=== PATIENT | female | born 1955 | race Caucasian/White ===

== ENCOUNTER 2023-07-16 07:33 | Emergency (ER) | payer MEDICARE, SELFPAY ==
--- NOTE | ~2023-07-16 | XR_ITS ---
EXAMINATION: XR ANKLE, RIGHT CLINICAL INFORMATION: Ankle pain COMPARISON: None available. TECHNIQUE: AP, lateral, and mortise views of the right ankle. FINDINGS: The mortise is preserved. There is no fracture, dislocation or destructive process. Small plantar spur is noted. Dystrophic calcification seen in the region of the plantar fascia. XR/XR ankle RT min 3V IMPRESSION: No acute findings. Probable plantar fasciopathy.
[2023-07-16 07:38] VITALS: BP 142/64; PULSE 79; RESP 16; TEMP 36.5; O2SAT 96; BMI 30.6
--- NOTE | 2023-07-16 08:23 | ED.LOWEXIN ---
HPI - Extremity Injury (Lower) General Chief Complaint: Extremity Injury, Lower Stated Complaint: r foot inj Time Seen by Provider: 07/16/23 08:18 Source: patient Mode of arrival: ambulatory Limitations: no limitations History of Present Illness ED Provider: Mayelin Coronado PA-C HPI Narrative: 67 yo female with PMH significant for but not limited to HTN, DM, and osteoarthritis of bilateral shoulders, presents to the ED for evaluation of right foot pain that began yesterday afternoon. Describes she was shopping, on her feet all day before the pain started. States she was wearing supportive sandals. She denies any precipitating injury. Pain exacerbated with ambulation and weight-bearing. Denies any attempts at pain relief with ice or OTC medication. Rates the pain as a 7/10 at rest and 10/10 with weight-bearing. Describes the pain as constant aching. Localizes the pain to her lateral malleolus region. She denies paresthesias. Describes she has experienced plantar fasciitis of her right foot in the past and did not feel like her current discomfort. MD complaint: other (Right ankle pain ) Onset (ago): day(s) Injury: Right: foot Type of Injury: unknown Severity: moderate Severity scale (1-10): 7 Exacerbating factors: weight bearing Associated symptoms: able to partially bear weight Other symptoms: none Related Data Allergies Allergy/AdvReac Type Severity Reaction Status Date / Time acetaminophen [From Percocet] Allergy Itching Verified 07/16/23 07:39 hydromorphone [From Dilaudid] Allergy Itching Verified 07/16/23 07:39 oxycodone [From Percocet] Allergy Itching Verified 07/16/23 07:39 Review of Systems Review of Systems: Yes all other systems are reviewed and are negative [facility] Social History Social History Advance Directives: No Physical Exam Vital Signs: Vital Signs: Last Vital Signs Temp 97.7 F 07/16/23 09:12 Pulse 79 07/16/23 09:12 Resp 16 07/16/23 09:12 BP 142/64 H 07/16/23 09:12 Pulse Ox 96 07/16/23 09:12 O2 Del Method Room Air 07/16/23 09:12 BMI result Body Mass Index 30.6 Appearance: Alert. Oriented X3. No acute distress. Head: normocephalic, atraumatic. Eyes: Pupils equal, round and reactive to light. ENT: Pharynx normal. Neck: Normal inspection. Neck supple. CVS: Normal heart rate and rhythm. Pulses normal. Respiratory: No respiratory distress. Abdomen: Soft and nontender. Skin: Skin warm and dry. Normal skin color. Normal skin turgor. No rashes. Extremities: No lower extremity edema. No joint swelling. No ecchymosis or erythema. Full ROM. Pain with dorsiflexion. Neurovascularly intact. No swelling of the right ankle with mild tenderness beneath the right lateral malleolus. No ecchymosis. Neuro/psych: Oriented X 3. No motor deficit. No sensory deficit. Normal speech and cognition. Medical Decision Making Medical Decision Making MDM Narrative: 67 yo female with PMH significant for but not limited to HTN, DM, and osteoarthritis of bilateral shoulders, presents to the ED for evaluation of right foot pain that began yesterday afternoon. Denies precipitating injury. Describes the pain as a dull ache in the lateral malleolus region. No edema or ecchymosis. Neurovascularly intact. Full ROM. Pain with dorsiflexion. Ankle x-ray revealed no acute findings. Probable lateral ankle sprain due to overuse. Placed in Hussein wrap for compression and support. Discussed rice therapy and follow-up with her primary care versus orthopedics if no improvement with supportive care. Stable for discharge home Differential Diagnosis Differential Diagnoses: The differential diagnosis associated with the presentation includes Lateral ankle sprain, plantar fasciitis, ankle fracture, ankle dislocation, osteoarthritis Independent Interpretation I performed an independent interpretation of an: Plain X-Ray Interpretation: No fracture or dislocation seen. Radiology Impression Discussion of test interpretation with radiology: I have reviewed the radiologist's reading. Radiologist Impression: EXAMINATION: XR ANKLE, RIGHT CLINICAL INFORMATION: Ankle pain COMPARISON: None available. TECHNIQUE: AP, lateral, and mortise views of the right ankle. FINDINGS: The mortise is preserved. There is no fracture, dislocation or destructive process. Small plantar spur is noted. Dystrophic calcification seen in the region of the plantar fascia. XR/XR ankle RT min 3V IMPRESSION: No acute findings. Probable plantar fasciopathy Prescription Management I considered prescription management with: Pain Medication Chronic Conditions Patient?s care impacted by: Diabetes, Hypertension and Other (Osteoarthritis) Critical Care Time Critical Care Time Critical Care Time: No Discharge Plan Discharge Clinical Impression: Ankle sprain and strain Patient Disposition: Home, Self-Care Instructions: Ankle Sprain (ED), Ankle Sprain (DC), Ankle Strain (ED) Additional Instructions: Your x-ray today was normal. Rest your ankle and elevate your foot when possible. Recommend HUSSEIN wrap for support and compression. Use ice several times per day for the next 48 hours. You may bear weight as tolerated. If pain is too severe, use crutches until better. Take Tylenol as needed for pain. Follow up with your doctor as needed. Interventions: ED Discharge Assessment Last Done: 07/16/23 09:12 Discharge Date/Time: 07/16/23 09:13 Print Language: Indonesian
[2023-07-16 09:12] VITALS: BP 142/64; PULSE 79; RESP 16; TEMP 36.5; O2SAT 96
== END 2023-07-16 09:13 | disposition home or self-care (01) ==
PROVIDERS: Emergency Provider Emergency Medicine
DX: S93.431A Sprain of tibiofibular ligament of right ankle, initial encounter (principal); S96.911A Strain of unspecified muscle and tendon at ankle and foot level, right foot, initial encounter; X50.9XXA Other and unspecified overexertion or strenuous movements or postures, initial encounter; Y93.01 Activity, walking, marching and hiking; Y92.59 Other trade areas as the place of occurrence of the external cause; Y99.9 Unspecified external cause status
CPT/HCPCS: 73610; 99283; 99284